=== PATIENT | male | born 1985 | race American Indian/Alaskan Native ===

== ENCOUNTER 2019-05-10 22:12 | Emergency (ER) | payer SELFPAY ==
[~2019-05-10] VITALS: Ht 175.3 cm; Wt 70.5 kg
[2019-05-10] MEDS ORDERED: DOXYCYCLINE 100MG CAPSULE PO STA (23:12)
[2019-05-10] MEDS ORDERED: cephalexin 250mg capsule PO ONE (23:15)
[2019-05-10] MEDS ORDERED: CEPH500C5 PO (23:22)
[2019-05-10] MEDS ORDERED: DOXY100C2 PO (23:22)
[2019-05-10 23:45] VITALS: BP 127/75
== END 2019-05-10 23:47 | disposition home or self-care (01) ==
LOC: ER 22:13
DX: L02.416 Cutaneous abscess of left lower limb (principal); L03.116 Cellulitis of left lower limb; Z79.899 Other long term (current) drug therapy
CPT/HCPCS: 99283

== ENCOUNTER 2019-08-12 22:28 | Emergency (ER) | payer OTHER ==
[~2019-08-12] VITALS: Ht 154.9 cm; Wt 70.5 kg
[2019-08-12 22:33] VITALS: BP 133/88
[2019-08-12] MEDS ORDERED: SULF1TAB49 PO (22:38)
== END 2019-08-12 22:43 | disposition home or self-care (01) ==
LOC: ER 22:28
DX: L02.414 Cutaneous abscess of left upper limb (principal); G89.29 Other chronic pain; F10.99 Alcohol use, unspecified with unspecified alcohol-induced disorder; Z79.899 Other long term (current) drug therapy; Y90.9 Presence of alcohol in blood, level not specified
CPT/HCPCS: 99283

== ENCOUNTER 2019-10-16 17:51 | Emergency (ER) | payer BC ==
[~2019-10-16] VITALS: Ht 180.3 cm; Wt 90.0 kg
[2019-10-16 18:06] VITALS: BP 145/82
== END 2019-10-16 18:23 | disposition home or self-care (01) ==
LOC: ER 17:52
DX: B82.9 Intestinal parasitism, unspecified (principal); F15.10 Other stimulant abuse, uncomplicated; G89.29 Other chronic pain; F10.99 Alcohol use, unspecified with unspecified alcohol-induced disorder; Y90.9 Presence of alcohol in blood, level not specified
CPT/HCPCS: 99281

== ENCOUNTER 2020-01-31 18:28 | Emergency (ER) | payer BC ==
[~2020-01-31] VITALS: Ht 175.3 cm; Wt 73.6 kg
[2020-01-31] MEDS ORDERED: HYDROcodone/acetaminophen 5mg/325mg tablet PO ONE (19:15)
[2020-01-31] MEDS ORDERED: TETanus/Pertussis (Acell)/Diphther VAC/PF (Tdap-Adult) 0.5ml syringe IMVAC ONE (19:15)
[2020-01-31] MEDS ORDERED: ondansetron 4mg rapidly disintigrating tab PO ONE (19:15)
[2020-01-31] MEDS ORDERED: LIDOcaine 1% W/epiNEPHrine 1:200,000 10ml vial IJ ONE (20:00)
[2020-01-31] MEDS ORDERED: IBUP-1984 PO (20:27)
[2020-01-31] MEDS ORDERED: ibuprofen tablet 400 MG TABLET PO ONE (20:35)
[2020-01-31 20:50] VITALS: BP 136/82
== END 2020-01-31 20:52 | disposition home or self-care (01) ==
LOC: ER 18:29
DX: S91.312A Laceration without foreign body, left foot, initial encounter (principal); G89.29 Other chronic pain; Z72.89 Other problems related to lifestyle; Z79.899 Other long term (current) drug therapy; Z91.030 Bee allergy status; W31.1XXA Contact with metalworking machines, initial encounter; Y93.89 Activity, other specified; Y92.89 Other specified places as the place of occurrence of the external cause; Y99.8 Other external cause status
CPT/HCPCS: 12001; 73620; 90471; 90715; 99284